=== PATIENT | male | born 1995 | race Caucasian/White ===

== ENCOUNTER 2022-03-30 13:21 | Inpatient (IN) ==
--- NOTE | 2022-03-30 14:09 | Emergency Department Note ---
Impression & Plan Seizure, Seizure-like activity, Leukocytosis, Low bicarbonate level ED Provider Note NAME: MASSIEL REVELES AGE: 26 SEX: M : 1995 ARRIVES VIA: Ambulance INFORMANT: Patient ED PROVIDER(S): Roni Parson DO CHIEF COMPLAINT: syncope x 2 HPI: Patient is a 26-year-old male who presents ER following having to episodes at home where he passed out. The first 1 was unwitnessed. The second was unwitnessed but his dad was in there and he heard the thud and came back and saw him with some intermittent agonal breathing. He was confused afterwards adn this lasted for a total of 10 minutes. There was no loss of bowel or bladder. He had no chest pain or shortness of breath preceding or following the incident. He does have a little bit of a headache. He believes his tetanus is up-to-date. Denies any chest pain or shortness of breath. No dysuria, urgency, or frequency. No drugs or alcohol. 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 ROS: See above HPI for pertinent positives & negatives. A total of 10 systems reviewed and were otherwise negative. PAST MEDICAL HISTORY:See Below PAST SURGICAL HISTORY:See Below FAMILY HISTORY:See Below SOCIAL HISTORY:See Below HOME MEDICATIONS:See Below ALLERGIES:See Below VITALS:See Below PHYSICAL EXAMINATION: GENERAL: alert, well appearing, well nourished, no distress, non-toxic HEAD: normal cephalic, abrasion above the left eyebrow with contusion. Laceration 2 inches above the top of the forehead with mild venous oozing 3 cm in length EYE EXAM: normal conjunctiva, PERRL and EOM's grossly intact OROPHARYNX: no exudate, no erythema, lips, buccal mucosa, and tongue normal and mucous membranes are moist NECK: supple, no nuchal rigidity, no adenopathy, non-tender CHEST: stable to compression anteriorly and posteriorly LUNGS: clear to auscultation. Normal chest wall mechanics HEART: no murmurs, S1 normal and S2 normal ABDOMEN: abdomen soft, non-tender, normo-active bowel sounds, no masses, no rebound or guarding. PELVIS: stable to compression anteriorly and posteriorly BACK: Back is symmetrical on inspection and there is no deformity, no midline tenderness, no CVA tenderness. UPPER EXTREMITIES: Flexion-extension of bilateral shoulders elbows wrist grasps without weakness or tenderness. No tenderness throughout bilateral arms on palpation with the exception of the left PIP and DIP on the third digit. DIP is held in flexion. Gross sensations intact. LOWER EXTREMITIES: full active and passive range of motion of all joints without tenderness to palpation NEURO EXAM: Normal sensorium, cranial nerves II-XII intact, normal speech, no weakness of arms, no weakness of legs. GCS: 15. MEDICAL DECISION MAKING: Patient is a 26-year-old male who presents ER with above-stated complaint. IV was established blood work was obtained. Labs show leukocytosis of 19,000. No significant anemia. BMP with a CO2 of 18. LFTs bilirubin were unremarkable. Troponin was negative. Lipase was unremarkable. Tox was negative. COVID was negative. D-dimer was slightly elevated. CT head was negative. CT face and cervical spine were unremarkable. Chest x-ray were unremarkable. Avulsion fracture at the base of the third distal phalanx as described on x-ray. Digit is unable to be extended at the DIP. Placed in splint. Discussed with Topher to have this followed up by orthopedics well as an inpatient. Patient had a witnessed seizure while in the ER which lasted for about 30 seconds. It was tonic-clonic. He had agonal breathing and was placed on a nonrebreather after the seizure and I performed a jaw thrust for several minutes. Was given 60 mg/kg of Keppra. He was updated at bedside as well as family once he returned to baseline. He was admitted for further work-up of his status epilepticus with 3 seizures today. Triage Nursing notes reviewed. Limited review of prior medical records performed Vital Signs: reviewed and remarkable for no significant abnormalities Differential diagnosis: Differential diagnosis includes etiologies such as vasovagal event, infection, hypoglycemia, electrolyte abnormalities, cardiac sources, intracerebral event, toxicologic, neurologic, as well as others were entertained. ER treatment provided: See below Diagnostics interpreted by me: ECG: Sinus rhythm rate 80 Normal axis No PVCs QTC 419 Cardiac Monitoring: An order was placed for continuous cardiac monitoring. The monitor shows a rate of 85 with sinus rhythm. Laboratory studies: As stated above and show below. Imaging studies: As described above Consultation(s): Discussed with Topher from [facility] Hospitalist service. Patient will need evaluation by orthopedics for his left distal third digit. He expressed understanding. Procedures: none Critical Care: I have personally spent 32 minutes of critical care time in the direct management of this patient. This includes bedside care, interpretation of diagnostic studies, and testing, discussion with consultants, patient, and family members, and other required patient management activities. This 32 minutes is in excess of all separately billable procedures. Past Med/Surg History Family History (Updated 03/30/22 @ 17:39 by LINDSEY Melvin) Other Family history non-contributory Social History Smoking Status: Never smoker Feels Safe at Home: Yes Allergies Allergies Allergy/AdvReac Type Severity Reaction Status Date / Time No Known Allergies Allergy Verified 03/30/22 16:13 Home Meds Home Medications Medication Instructions Recorded Confirmed Pre Workout Powd 1 dose PO DIRECTED PRN .Before 03/30/22 03/30/22 workouts biotin 1 mg capsule 0 mg PO DAILY 03/30/22 03/30/22 ibuprofen 200 mg tablet (Advil) 400 mg PO Q6H PRN Pain 03/30/22 03/30/22 Results & Data (ED) Vital Signs Vital Signs - 24 hr 03/30/22 13:30 03/30/22 15:37 03/30/22 15:37 Temperature 36.6 C Temperature Source Oral Pulse Rate 73 Pulse Rate [Apical] 86 Pulse Rhythm Regular Pulse Strength Normal Respiratory Rate 15 22 Respiratory Effort / Characteristics Non-Labored Respiratory Depth Normal Respiratory Pattern Regular Blood Pressure 126/52 L Blood Pressure [Right Arm] 104/83 Blood Pressure Mean 76 Blood Pressure Mean [Right Arm] 90 Blood Pressure Position Lying Blood Pressure Position [Right Arm] Lying Pulse Oximetry 98 100 98 Oxygen Delivery Method Room Air Room Air Sepsis Recent Fever Within 48 Hours No Sepsis New/Unexplained Change in Mental Status No Sepsis Action Taken by Nursing No Action Required 03/30/22 15:37 03/30/22 17:00 Temperature Temperature Source Pulse Rate 86 Pulse Rate [Apical] 84 Pulse Rhythm Pulse Strength Respiratory Rate 22 22 Respiratory Effort / Characteristics Respiratory Depth Respiratory Pattern Blood Pressure Blood Pressure [Right Arm] 108/52 L Blood Pressure Mean Blood Pressure Mean [Right Arm] 70 Blood Pressure Position Blood Pressure Position [Right Arm] Pulse Oximetry 98 97 Oxygen Delivery Method Room Air Sepsis Recent Fever Within 48 Hours Sepsis New/Unexplained Change in Mental Status Sepsis Action Taken by Nursing Laboratory Data Result diagrams: 03/30/22 14:40 03/30/22 14:40 Lab Results 03/30/22 03/30/22 03/30/22 Range/Units 14:40 14:40 14:40 WBC 19.36 H (4.8-10.8) K/ul RBC 5.64 (4.63-6.08) M/uL Hgb 15.6 (14.0-18.0) g/dl Hct 48.5 (40.1-51.0) % MCV 86.0 (80.0-100.0) fL MCH 27.7 (25.0-34.0) pg MCHC 32.2 (32.0-36.0) g/dL RDW Std Deviation 38.5 (36.4-46.3) fL RDW Coeff of Lorena 12.3 (11.5-14.5) % Plt Count 256 (130-400) K/uL MPV 11.3 (9.4-12.4) fL Immature Gran % (Auto) 0.6 % Neut % (Auto) 87.3 % Lymph % (Auto) 5.6 % [place] % (Auto) 6.1 % Eos % (Auto) 0.1 % Baso % (Auto) 0.3 % Neut # (Auto) 16.89 H (1.4-6.5) K/uL Lymph # (Auto) 1.09 L (1.2-3.4) K/uL [place] # (Auto) 1.19 H (0.24-0.82) K/uL Eos # (Auto) 0.02 (0-0.50) K/uL Baso # (Auto) 0.05 (0-0.2) K/uL Immature Gran # (Auto) 0.12 H (0.00-0.02) K/uL D-Dimer 900 H* (0-500) ug/L FEU Sodium 139 (136-145) mmol/L Potassium 4.1 (3.5-5.1) mmol/L Chloride 103 (98-107) mmol/L Carbon Dioxide 18 L (21-32) mmol/L Anion Gap 18 H (3-11) BUN 22 (6-23) mg/dl Creatinine 1.33 (0.6-1.4) mg/dl Est Cr Clr Drug Dosing 88.1 ml/min Est GFR ( Amer) 83.7 ml/min Est GFR (Non-Af Amer) 72.2 ml/min BUN/Creatinine Ratio 16.5 (10-20) Glucose 112 H (70-99(Fasting)) mg/dl Calcium 9.4 (8.5-10.1) mg/dl Total Bilirubin 0.5 (0.2-1.0) mg/dl AST 22 (13-39) U/L ALT 21 (7-52) U/L Alkaline Phosphatase 62 (34-104) U/L Troponin I High Sens 3.5 (0-20) pg/ml Total Protein 7.9 (6.0-8.3) gm/dl Albumin 5.0 (3.4-5.0) gm/dl Globulin 2.9 (2.5-4.0) gm/dl Albumin/Globulin Ratio 1.7 (0.9-2) Lipase 48 (11-82) U/L Urine Opiates Screen (Neg) Ur Methadone, Qual (Neg) Urine Barbiturates (Neg) Ur Phencyclidine (PCP) (Neg) U Amphetamin/Meth Scrn (Neg) MDMA (Ecstasy) Screen (Neg) U Benzodiazepines Scrn (Neg) Ur Cocaine Metabolite (Neg) U Marijuana (THC) Screen (Neg) SARS-CoV-2, RNA, NAAT (NEGATIVE) 03/30/22 03/30/22 Range/Units 15:40 15:40 WBC (4.8-10.8) K/ul RBC (4.63-6.08) M/uL Hgb (14.0-18.0) g/dl Hct (40.1-51.0) % MCV (80.0-100.0) fL MCH (25.0-34.0) pg MCHC (32.0-36.0) g/dL RDW Std Deviation (36.4-46.3) fL RDW Coeff of Lorena (11.5-14.5) % Plt Count (130-400) K/uL MPV (9.4-12.4) fL Immature Gran % (Auto) % Neut % (Auto) % Lymph % (Auto) % [place] % (Auto) % Eos % (Auto) % Baso % (Auto) % Neut # (Auto) (1.4-6.5) K/uL Lymph # (Auto) (1.2-3.4) K/uL [place] # (Auto) (0.24-0.82) K/uL Eos # (Auto) (0-0.50) K/uL Baso # (Auto) (0-0.2) K/uL Immature Gran # (Auto) (0.00-0.02) K/uL D-Dimer (0-500) ug/L FEU Sodium (136-145) mmol/L Potassium (3.5-5.1) mmol/L Chloride (98-107) mmol/L Carbon Dioxide (21-32) mmol/L Anion Gap (3-11) BUN (6-23) mg/dl Creatinine (0.6-1.4) mg/dl Est Cr Clr Drug Dosing ml/min Est GFR ( Amer) ml/min Est GFR (Non-Af Amer) ml/min BUN/Creatinine Ratio (10-20) Glucose (70-99(Fasting)) mg/dl Calcium (8.5-10.1) mg/dl Total Bilirubin (0.2-1.0) mg/dl AST (13-39) U/L ALT (7-52) U/L Alkaline Phosphatase (34-104) U/L Troponin I High Sens (0-20) pg/ml Total Protein (6.0-8.3) gm/dl Albumin (3.4-5.0) gm/dl Globulin (2.5-4.0) gm/dl Albumin/Globulin Ratio (0.9-2) Lipase (11-82) U/L Urine Opiates Screen Neg (Neg) Ur Methadone, Qual Neg (Neg) Urine Barbiturates Neg (Neg) Ur Phencyclidine (PCP) Neg (Neg) U Amphetamin/Meth Scrn Neg (Neg) MDMA (Ecstasy) Screen Neg (Neg) U Benzodiazepines Scrn Neg (Neg) Ur Cocaine Metabolite Neg (Neg) U Marijuana (THC) Screen Neg (Neg) SARS-CoV-2, RNA, NAAT NEGATIVE (NEGATIVE) Administered Medications Discontinued Medications Gadobutrol (Gadobutrol 65ml Vial) 8 ml IV ONCE ONE Stop: 03/30/22 19:11 Last Admin: 03/30/22 19:11 Dose: 8 ml Documented By: AF Levetiracetam 4,500 mg/ Sodium (Chloride) 545 mls @ 999 mls/hr IV NOW STA Stop: 03/30/22 15:30 Last Infusion: 03/30/22 16:43 Dose: 0 mls/hr Documented By: Admin: 03/30/22 15:14 Dose: 999 mls/hr Documented By: BRONSON Sodium Chloride (Nss 1000ml) 1,000 mls @ 999 mls/hr IV .Q1H1M ONE Stop: 03/30/22 17:30 Last Infusion: 03/30/22 19:02 Dose: 0 mls/hr Documented By: Admin: 03/30/22 17:10 Dose: 999 mls/hr Documented By: PAUL Imaging Data Radiologist's Impression: Cervical Spine CT 03/30/22 14:05 CT cervical spine wo con CLINICAL HISTORY: Status post fall with trauma to the head. Neck pain. COMPARISON STUDY: No previous studies for comparison. CT DOSE: 1764.85 mGy.cm TECHNIQUE: Standard CT of the Cervical Spine was performed without IV contrast. A dose lowering technique was utilized adhering to the principles of ALARA. FINDINGS: Bones: There is no evidence for an acute fracture or malalignment. The heights of the vertebral bodies are maintained. The vertebral bodies are in anatomic alignment. The odontoid is intact and the atlantoaxial articulation is within normal limits. Disc spaces: The disc space heights are maintained. There is patient motion artifact at the C2-3 disc space level. Apophyseal joints: The apophyseal joints are intact bilaterally. Soft tissues: The prevertebral soft tissues are within normal limits. IMPRESSION: 1. No acute osseous pathology. 2. Patient motion artifact at C2-3. ACT 112: Negative or not required by law. Electronically signed by: Carlos Reaves M.D. 03/30/2022 3:28 PM Chest X-Ray 03/30/22 14:05 XR chest 1V portable CLINICAL HISTORY: Chest Pain TECHNIQUE: Single frontal radiograph of the chest was obtained. Comparison: None available at the time of this dictation. FINDINGS: No lines and tubes are seen. The cardiomediastinal silhouette is normal. The lungs are clear. No evidence of pleural effusion or pneumothorax. IMPRESSION: No acute chest disease. ACT 112: Negative or not required by law. Electronically signed by: Bimal Dominguez M.D. 03/30/2022 2:[address] 03/30/22 14:05 CT SCAN OF THE FACIAL BONES WITHOUT IV CONTRAST CLINICAL HISTORY: Fall. Seizure. COMPARISON STUDY: CT of the brain performed concurrently on 03/30/2022. TECHNIQUE: High-resolution CT scan of the facial bones is performed. Images are reviewed in the axial, sagittal, and coronal planes. IV contrast was not administered for this examination. A dose lowering technique was utilized adhering to the principles of ALARA. The examination is degraded by motion artifact. FINDINGS: The skeletal structures are well mineralized. There is a small left frontal scalp hematoma as well as mild left facial soft tissue contusion. There is no evidence of facial bone fracture. The bony orbits are intact and the orbital contents are within normal limits. There is no depressed nasal bone fracture. The zygomatic arches and pterygoid plates are preserved. The maxilla and mandible are intact. There are no layering blood products within the paranasal sinuses. There is an 8 mm retention cyst in the right maxillary antrum. The paranasal sinuses are otherwise clear. The mastoid air cells are well pneumatized. The visualized calvarium and upper cervical spine are maintained. Partially imaged brain parenchyma is within normal limits. IMPRESSION: 1. There is no evidence of facial bone fracture noting a motion degraded examination. 2. Small left frontal scalp hematoma and left facial soft tissue contusion. ACT 112: Negative or not required by law. Electronically signed by: Saúl Tanner M.D. 03/30/2022 3:24 PM Finger X-Ray 03/30/22 14:05 XR finger(s) LT min 2V CLINICAL HISTORY: l 3rd held in flexion dip and pain PIP TECHNIQUE: 3 views of the left third digit were obtained. Comparison: None available at the time of this dictation. FINDINGS: There is no evidence of an acute fracture. There is an avulsion fracture of the base of the third digit distal phalanx. Soft tissue swelling is seen about the digit. IMPRESSION: Avulsion fracture at the base of the third digit distal phalanx. Surrounding soft tissue swelling is seen. ACT 112: Negative or not required by law. Electronically signed by: Bimal Dominguez M.D. 03/30/2022 2:[address] 03/30/22 14:05 CT SCAN OF THE BRAIN WITHOUT IV CONTRAST CLINICAL HISTORY: Fall. Seizure. COMPARISON STUDY: No priors. TECHNIQUE: Unenhanced axial CT scan of the brain is performed from the vertex to the skull base. A dose lowering technique was utilized adhering to the principles of ALARA. The Examination is motion compromised. The patient was scanned twice due an effort to improve image quality. FINDINGS: Brain parenchyma: The brain parenchyma is normal in appearance. There is no hemorrhage, mass effect, or evidence of acute territorial ischemia by CT criteria. Gonsalez-white matter differentiation is preserved. No extra-axial fluid collection is seen. Ventricles, sulci, cisterns: Normal in configuration. Intracranial vasculature: The visualized intracranial vasculature at the skull base is normal in appearance. Calvarium: There is no depressed calvarial fracture. Soft tissues: There is a small left frontal scalp hematoma. Sinuses and mastoids: The visualized paranasal sinuses are clear. The mastoid air cells are well pneumatized. Orbits: The bony orbits are grossly intact. IMPRESSION: No acute intracranial abnormality is identified noting a motion compromised examination. ACT 112: Negative or not required by law. Electronically signed by: Saúl Tanner M.D. 03/30/2022 3:19 PM Brain MRI 03/30/22 16:55 MR brain seizure wo/w con CLINICAL HISTORY: new onset seizures TECHNIQUE: Multiplanar and multisequence MR images of the brain were obtained prior to and following administration of gadolinium contrast. Comparison: None available at the time of this dictation. FINDINGS: No abnormal restricted diffusion is identified. The white matter is unremarkable. The ventricular system is normal in appearance. No mass or abnormal enhancement is seen. There is no mass effect or midline shift. There is no evidence of acute intraparenchymal hemorrhage. No extra axial fluid collections are seen. The corpus callosum, pituitary gland, and cerebellar tonsils appear grossly unremarkable. High-resolution images of the temporal lobes do not demonstrate any signal abnormality. Flow voids of the major intracranial arterial vessels are identified. The imaged portions of the paranasal sinuses, mastoid air cells, and orbits are unremarkable. IMPRESSION: No acute abnormality. In particular, no edema in the temporal lobes bilaterally in this postictal patient. ACT 112: Negative or not required by law. Electronically signed by: Bimal Dominguez M.D. 03/30/2022 7:33 PM Discharge Plan Visit Data Chief Complaint: Syncope Stated Complaint: syncope ED Provider: Roni Parson Discharge Problem: Seizure, Seizure-like activity, Leukocytosis, Low bicarbonate level
--- NOTE | 2022-03-30 14:34 | XRay Report ---
XR chest 1V portable CLINICAL HISTORY: Chest Pain TECHNIQUE: Single frontal radiograph of the chest was obtained. Comparison: None available at the time of this dictation. FINDINGS: No lines and tubes are seen. The cardiomediastinal silhouette is normal. The lungs are clear. No evid ence of pleural effusion or pneumothorax. IMPRESSION: No acute chest disease. ACT 112: Negative or not required by law. Electronically signed by: Bimal Dominguez M.D. 03/30/2022 2:33 PM
--- NOTE | 2022-03-30 14:44 | XRay Report ---
XR finger(s) LT min 2V CLINICAL HISTORY: l 3rd held in flexion dip and pain PIP TECHNIQUE: 3 views of the left third digit were obtained. Comparison: None available at the time of this dictation. FINDINGS: There is no evidence of an acute fracture. There is an avulsion fracture of the base of the third dig it distal phalanx. Soft tissue swelling is seen about the digit. IMPRESSION: Avulsion fracture at the base of the third digit distal phalanx. Surrounding soft tissue swelling is seen. ACT 112: Negative or not required by law. Electronically signed by: Bimal Dominguez M.D. 03/30/2022 2:43 PM
[2022-03-30] MEDS ORDERED: SODIUM CHLORIDE 0.9% IV STA (14:58)
[2022-03-30] MEDS ORDERED: LEVETIRACETAM IV STA (14:58)
--- NOTE | 2022-03-30 15:21 | CT Scan Report ---
CT SCAN OF THE BRAIN WITHOUT IV CONTRAST CLINICAL HISTORY: Fall. Seizure. COMPARISON STUDY: No priors. TECHNIQUE: Unenhanced axial CT scan of the brain is performed from the vertex to the skull base. A d ose lowering technique was utilized adhering to the principles of ALARA. The Examination is motion co mpromised. The patient was scanned twice due an effort to improve image quality. FINDINGS: Brain parenchyma: The brain parenchyma is normal in appearance. There is no hemorrhage, mass effect, or evidence of acute territorial ischemia by CT criteria. Gonsalez-white matter differentiation is preser raymond. No extra-axial fluid collection is seen. Ventricles, sulci, cisterns: Normal in configuration. Intracranial vasculature: The visualized intracranial vasculature at the skull base is normal in appe arance. Calvarium: There is no depressed calvarial fracture. Soft tissues: There is a small left frontal scalp hematoma. Sinuses and mastoids: The visualized paranasal sinuses are clear. The mastoid air cells are well pneu matized. Orbits: The bony orbits are grossly intact. IMPRESSION: No acute intracranial abnormality is identified noting a motion compromised examination. ACT 112: Negative or not required by law. Electronically signed by: Saúl Tanner M.D. 03/30/2022 3:19 PM
--- NOTE | 2022-03-30 15:21 | Electrocardiogram Report ---
Test Reason : Blood Pressure : / mmHG Vent. Rate : 080 BPM Atrial Rate : 080 BPM P-R Int : 162 ms QRS Dur : 100 ms QT Int : 364 ms P-R-T Axes : 049 051 029 degrees QTc Int : 419 ms Normal sinus rhythm No previous ECGs available Confirmed by Fredrick Grubbs ([id number]) on 03/30/2022 3:21:33 PM Referred By: REFERRED SELF Confirmed By:Harman Grubbs
--- NOTE | 2022-03-30 15:26 | CT Scan Report ---
CT SCAN OF THE FACIAL BONES WITHOUT IV CONTRAST CLINICAL HISTORY: Fall. Seizure. COMPARISON STUDY: CT of the brain performed concurrently on 03/30/2022. TECHNIQUE: High-resolution CT scan of the facial bones is performed. Images are reviewed in the axia l, sagittal, and coronal planes. IV contrast was not administered for this examination. A dose lower ing technique was utilized adhering to the principles of ALARA. The examination is degraded by motion artifact. FINDINGS: The skeletal structures are well mineralized. There is a small left frontal scalp hematoma as well as mild left facial soft tissue contusion. There is no evidence of facial bone fracture. The bony orbits are intact and the orbital contents are within normal limits. There is no depressed nasal bone fracture. The zygomatic arches and pterygoid plates are preserved. The maxilla and mandible are intact. There are no layering blood products within the paranasal sinuses. There is an 8 mm retentio n cyst in the right maxillary antrum. The paranasal sinuses are otherwise clear. The mastoid air cell s are well pneumatized. The visualized calvarium and upper cervical spine are maintained. Partially i isra brain parenchyma is within normal limits. IMPRESSION: 1. There is no evidence of facial bone fracture noting a motion degraded examination. 2. Small left frontal scalp hematoma and left facial soft tissue contusion. ACT 112: Negative or not required by law. Electronically signed by: Saúl Tanner M.D. 03/30/2022 3:24 PM
[2022-03-30 15:27] LABS: Basophils # (auto) 0.05 K/uL (0-0.2); Basophils % (auto) 0.3 %; Eosinophils # (auto) 0.02 K/uL (0-0.50); Eosinophils % (auto) 0.1 %; Hematocrit (blood only) 48.5 % (40.1-51.0); Hemoglobin 15.6 g/dl (14.0-18.0); Immature Granulocytes # (auto) 0.12 K/uL (0.00-0.02); Immature Granulocytes % (auto) 0.6 %; Lymphocytes # (auto) 1.09 K/uL (1.2-3.4); Lymphocytes % (auto) 5.6 %; Mean Corpuscular Hemoglobin 27.7 pg (25.0-34.0); Mean Corpuscular Hgb Conc 32.2 g/dL (32.0-36.0); Mean Platelet Volume 11.3 fL (9.4-12.4); Monocytes # (auto) 1.19 K/uL (0.24-0.82); Monocytes % (auto) 6.1 %; Neutrophils # (auto) 16.89 K/uL (1.4-6.5); Neutrophils % (auto) 87.3 %; Platelet Count 256 K/uL (130-400); RDW Coefficient of Variation 12.3 % (11.5-14.5); RDW Standard Deviation 38.5 fL (36.4-46.3); Red Blood Count 5.64 M/uL (4.63-6.08); White Blood Count 19.36 K/ul (4.8-10.8)
--- NOTE | 2022-03-30 15:29 | CT Scan Report ---
CT cervical spine wo con CLINICAL HISTORY: Status post fall with trauma to the head. Neck pain. COMPARISON STUDY: No previous studies for comparison. CT DOSE: 1764.85 mGy.cm TECHNIQUE: Standard CT of the Cervical Spine was performed without IV contrast. A dose lowering surekha hnique was utilized adhering to the principles of ALARA. FINDINGS: Bones: There is no evidence for an acute fracture or malalignment. The heights of the vertebral lizet s are maintained. The vertebral bodies are in anatomic alignment. The odontoid is intact and the atla ntoaxial articulation is within normal limits. Disc spaces: The disc space heights are maintained. There is patient motion artifact at the C2-3 disc space level. Apophyseal joints: The apophyseal joints are intact bilaterally. Soft tissues: The prevertebral soft tissues are within normal limits. IMPRESSION: 1. No acute osseous pathology. 2. Patient motion artifact at C2-3. ACT 112: Negative or not required by law. Electronically signed by: Carlos Reaves M.D. 03/30/2022 3:28 PM
[2022-03-30 15:50] LABS: Albumin Globulin Ratio 1.7 (0.9-2); BUN Creatinine Ratio 16.5 (10-20); Bilirubin,Total 0.5 mg/dl (0.2-1.0); Calcium 9.4 mg/dl (8.5-10.1); Creatinine Clr Calc Pharmacy 88.1 ml/min; D Dimer 900 ug/L FEU (0-500); Est GFR (African American) 83.7 ml/min; Est GFR (Non-African American) 72.2 ml/min; Globulin 2.9 gm/dl (2.5-4.0); Potassium 4.1 mmol/L (3.5-5.1); Total Protein 7.9 gm/dl (6.0-8.3)
[2022-03-30 15:54] LABS: Troponin I High Sensitivity 3.5 pg/ml (0-20)
[2022-03-30] MEDS ORDERED: SODIUM CHLORIDE 0.9% 1000ML 1,000 ML IV ONE (16:30)
--- NOTE | 2022-03-30 17:18 | History & Physical Report ---
Date of Service March 30, 2022 Assessment & Plan (1) Seizure-like activity: Plan: Patient presents with what originally sounded like syncopal episodes precluded by dizziness and light headedness, however witnessed event in the EMD was reported as seizure like activity with reported tonic/clonic of the arms possibly < than 1min. This would be new onset of seizure for this 26 YOM with and if all episodes were as the one in the EMD this would be 3 episodes. He is back to full baseline neurological status. Associated with minimal confusion afterwards and short lived. - DDX- Seizure vs. Cardiac vs. endocrine vs. toxic vs. mass vs. infectious - Patient loaded with 4.5 GM Keppra IV by EMD- will continue this at 750 mg orally BID - MRI of the head with and without contrast seizure protocol. 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 This will need addressed. (2) Avulsion fracture: Plan: Left 3rd finger avulsion fracture- splint ordered to be applied by EMD - Patient unable to extend, but manually able to extend the finger without pain or resistance - Orthopaedics consulted (3) Head contusion: Plan: Left frontal laceration closed primarily by EMD - with surrounding ecchymosis - neuro exams q4 hour - any acute change - repeat head CT non contrast evaluate for DASH (4) Leukocytosis: Plan: Without fever, cough, CXR clear - Likely reactionary to all of the events today History of Present Illness Primary Care Provider: NO PCP 26 YOM with no medical history and not on any prescription medications. Patient comes to the EMD today via EMS for syncope/seizure like activity. The patient was at home this morning down in his basement when he was removing sticker from his water bottle with goo gone. He started to feel dizzy and lightheaded, so he tried to make his way over to the finished section. While on his way over he remembers getting more dizzy. He then awoke on the floor and he endorsed confused. He had a laceration to the front of his head. He was able to take a picture of himself and text his mom, this was around 11:30. His mom talked to him on the phone and he sounded "off". He did not have an loss of bowel or bladder with this episode. His dad went over to see him. The patient then went into the bedroom to get dressed and his dad heard him say "Oh Shit" and heard him fall to the ground, his dad thinks he may have hit his head on the top on the dresser behind him. His dad called 911 ~ 1220 and rolled his son on his side. He endorses him making a barking/puffing sound with his breathing. The patient awakened but can not remember anything, this episode lasted ~ 10-15 minutes. The patient remembers waking up and seeing EMS around him. He was then transported to the EMD. In the EMD the patient had a witnessed event by EMD staff. This was him tightening his arms up to about 3/4 to his chest and again with barking/puffing breathing and reported as tonic clonic movement of his arms. This was resolving as the EMD physician got to bedside so presume 1 min or less. This was also not associated with any loss of bowel or bladder and also with out any biting of his tongue. He awakened and was not confused or postictal. He is spontaneously awake at this time and normally functioning. This was treated with Keppra 4.5 GM IV and unsure of time frame. In the EMD he had CT scan of his head, CXR, finger X-ray, Face CT and Cervical spine CT scan done. The patient does have an avulsion fracture of the base of the third digit distal phalanx and is unable to extend 3rd digit by self. It is being splinted, will consult orthopaedics. His head CT and Cervical CT scan are normal. His face CT scan is without fractures. Patient will be admitted to PCU, continue seizure precautions at all times. The patient has recently started taking a pre-workout powder that he has brought with him. He previously took this about a year ago, however stopped. He recently started this back within the last few days. He takes creatine supplementation about 1/2 scoop. He is physically active and has not had any events like this while working out or stressed. He averages 1-2 cups of coffee per day. Uses energy drinks 1 time per month if that. He denies excessive alcohol intake or smoking/vaping. He does however have a history of "passing" out when he sees blood on him, or blood draws, or things like capes around his neck. He denies any other drug use or supplementation. He denies any change in his diet or fasting. His glucose was normal on arrival and rest of his BMP is negative. Jose, consult Neurology, obtain EEG, MRI of brain with and without contrast. Valium will be available for breakthrough seizure. Toxicology screen, prolactin, lactate, CK, pending. He is without fevers, alteration in mentation and without focal neurological deficits. 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 This will need addressed. COVID test on admission is: NEGATIVE Allergies Allergy/AdvReac Type Severity Reaction Status Date / Time No Known Allergies Allergy Verified 03/30/22 16:13 Home Medications Medication Instructions Recorded Confirmed Type Pre Workout Powd 1 dose PO DIRECTED PRN .Before 03/30/22 03/30/22 History workouts biotin 1 mg capsule 0 mg PO DAILY 03/30/22 03/30/22 History ibuprofen 200 mg tablet (Advil) 400 mg PO Q6H PRN Pain 03/30/22 03/30/22 History Past Med/Surg History Family History Other Family history non-contributory Social History Smoking Status: Never smoker Hx Alcohol Use: Yes Hx Substance Use: No Preferred Language: Swedish Communication Ability: Effective Tire Setter Required: No Beliefs That Will Affect Care: None Feels Safe at Home: Yes Review of Systems Review of Systems: REVIEW OF SYSTEMS: Constitutional: No fever, sweats or chills Eyes: No diplopia, no worsening or blurred vision ENT: normal hearing, no trouble swallowing Respiratory: No cough, sputum, dyspnea at rest or on exertion Cardiovascular: (+) dizziness, lightheadedness, No chest pain, tightness or palpitations Abdomen: No pain, nausea, vomiting, diarrhea or constipation Musculoskeletal: No joint pain, calf pain, swelling Neurologic: (+) seizure like activity, No weakness, numbness/tingling, or balance problems Psychiatric: No anxiety or depression Skin: No rash or itch Physical Exam Physical Exam: PHYSICAL EXAM: General: awake, alert, no apparent distress Head: Laceration to left forehead/scalp- repaired in EMD ENT: PERRLA, EOMI, no nystagmus, no pharyngeal exudate, mucous membranes moist Neuro: AAO x 3, speech clear and appropriate, strength intact bilaterally 5/5, sensation intact and equal all extremities and dermatomes, no pronator drift, no ataxia, normal babinski Chest: equal rise and fall of the chest, no accessory muscle use, no heaves or thrills, Clear to auscultation, on room air, Cardiac: Regular rate and rhythm, telemetry reviewed, skin warm dry, cap refill <3 seconds, peripheral pulses +2 no JVD, no murmur, no edema GI: NABS x 4 quadrants, soft, nontender to palpation, no rebound, guarding or tenderness : Spontaneously voiding, no pain, no CVA tenderness, Extremities: LEFT 3rd finger avulsion fracture with inability to extend. Normal inspection, no peripheral edema or erythema, calfs nontender to palpation Psych: Normal mood and affect Results & Data Results & Data ([facility]) Vital Signs (Past 12 Hours) Vital Signs Temp Pulse Pulse Resp BP BP Pulse Ox 03/30/22 15:37 86 22 98 03/30/22 15:37 86 22 104/83 98 03/30/22 15:37 100 03/30/22 13:30 36.6 C 73 15 126/52 L 98 O2 Del Method 03/30/22 15:37 Room Air 03/30/22 15:37 03/30/22 15:37 Room Air 03/30/22 13:30 Room Air Laboratory Results Abnormal lab results 03/30/22 03/30/22 03/30/22 Range/Units 14:40 14:40 14:40 WBC 19.36 H (4.8-10.8) K/ul Neut # (Auto) 16.89 H (1.4-6.5) K/uL Lymph # (Auto) 1.09 L (1.2-3.4) K/uL [place] # (Auto) 1.19 H (0.24-0.82) K/uL Immature Gran # (Auto) 0.12 H (0.00-0.02) K/uL D-Dimer 900 H* (0-500) ug/L FEU Carbon Dioxide 18 L (21-32) mmol/L Anion Gap 18 H (3-11) Glucose 112 H (70-99(Fasting)) mg/dl Diagnostic Findings Cervical Spine CT 03/30/22 14:05 CT cervical spine wo con CLINICAL HISTORY: Status post fall with trauma to the head. Neck pain. COMPARISON STUDY: No previous studies for comparison. CT DOSE: 1764.85 mGy.cm TECHNIQUE: Standard CT of the Cervical Spine was performed without IV contrast. A dose lowering technique was utilized adhering to the principles of ALARA. FINDINGS: Bones: There is no evidence for an acute fracture or malalignment. The heights of the vertebral bodies are maintained. The vertebral bodies are in anatomic alignment. The odontoid is intact and the atlantoaxial articulation is within normal limits. Disc spaces: The disc space heights are maintained. There is patient motion artifact at the C2-3 disc space level. Apophyseal joints: The apophyseal joints are intact bilaterally. Soft tissues: The prevertebral soft tissues are within normal limits. IMPRESSION: 1. No acute osseous pathology. 2. Patient motion artifact at C2-3. ACT 112: Negative or not required by law. Electronically signed by: Carlos Reaves M.D. 03/30/2022 3:28 PM Chest X-Ray 03/30/22 14:05 XR chest 1V portable CLINICAL HISTORY: Chest Pain TECHNIQUE: Single frontal radiograph of the chest was obtained. Comparison: None available at the time of this dictation. FINDINGS: No lines and tubes are seen. The cardiomediastinal silhouette is normal. The lungs are clear. No evidence of pleural effusion or pneumothorax. IMPRESSION: No acute chest disease. ACT 112: Negative or not required by law. Electronically signed by: Bimal Dominguez M.D. 03/30/2022 2:[address] 03/30/22 14:05 CT SCAN OF THE FACIAL BONES WITHOUT IV CONTRAST CLINICAL HISTORY: Fall. Seizure. COMPARISON STUDY: CT of the brain performed concurrently on 03/30/2022. TECHNIQUE: High-resolution CT scan of the facial bones is performed. Images are reviewed in the axial, sagittal, and coronal planes. IV contrast was not administered for this examination. A dose lowering technique was utilized adhering to the principles of ALARA. The examination is degraded by motion artifact. FINDINGS: The skeletal structures are well mineralized. There is a small left frontal scalp hematoma as well as mild left facial soft tissue contusion. There is no evidence of facial bone fracture. The bony orbits are intact and the orbital contents are within normal limits. There is no depressed nasal bone fracture. The zygomatic arches and pterygoid plates are preserved. The maxilla and mandible are intact. There are no layering blood products within the paranasal sinuses. There is an 8 mm retention cyst in the right maxillary antrum. The paranasal sinuses are otherwise clear. The mastoid air cells are well pneumatized. The visualized calvarium and upper cervical spine are maintained. Partially imaged brain parenchyma is within normal limits. IMPRESSION: 1. There is no evidence of facial bone fracture noting a motion degraded examination. 2. Small left frontal scalp hematoma and left facial soft tissue contusion. ACT 112: Negative or not required by law. Electronically signed by: Saúl Tanner M.D. 03/30/2022 3:24 PM Finger X-Ray 03/30/22 14:05 XR finger(s) LT min 2V CLINICAL HISTORY: l 3rd held in flexion dip and pain PIP TECHNIQUE: 3 views of the left third digit were obtained. Comparison: None available at the time of this dictation. FINDINGS: There is no evidence of an acute fracture. There is an avulsion fracture of the base of the third digit distal phalanx. Soft tissue swelling is seen about the digit. IMPRESSION: Avulsion fracture at the base of the third digit distal phalanx. Surrounding soft tissue swelling is seen. ACT 112: Negative or not required by law. Electronically signed by: Bimal Dominguez M.D. 03/30/2022 2:[address] 03/30/22 14:05 CT SCAN OF THE BRAIN WITHOUT IV CONTRAST CLINICAL HISTORY: Fall. Seizure. COMPARISON STUDY: No priors. TECHNIQUE: Unenhanced axial CT scan of the brain is performed from the vertex to the skull base. A dose lowering technique was utilized adhering to the principles of ALARA. The Examination is motion compromised. The patient was scanned twice due an effort to improve image quality. FINDINGS: Brain parenchyma: The brain parenchyma is normal in appearance. There is no hemorrhage, mass effect, or evidence of acute territorial ischemia by CT criteria. Gonsalez-white matter differentiation is preserved. No extra-axial fluid collection is seen. Ventricles, sulci, cisterns: Normal in configuration. Intracranial vasculature: The visualized intracranial vasculature at the skull base is normal in appearance. Calvarium: There is no depressed calvarial fracture. Soft tissues: There is a small left frontal scalp hematoma. Sinuses and mastoids: The visualized paranasal sinuses are clear. The mastoid air cells are well pneumatized. Orbits: The bony orbits are grossly intact. IMPRESSION: No acute intracranial abnormality is identified noting a motion c ompromised examination. ACT 112: Negative or not required by law. Electronically signed by: Saúl Tanner M.D. 03/30/2022 3:19 PM MR brain seizure wo/w con CLINICAL HISTORY: new onset seizures TECHNIQUE: Multiplanar and multisequence MR images of the brain were obtained prior to and following administration of gadolinium contrast. Comparison: None available at the time of this dictation. FINDINGS: No abnormal restricted diffusion is identified. The white matter is unremarkable. The ventricular system is normal in appearance. No mass or abnormal enhancement is seen. There is no mass effect or midline shift. There is no evidence of acute intraparenchymal hemorrhage. No extra axial fluid collections are seen. The corpus callosum, pituitary gland, and cerebellar tonsils appear grossly unremarkable. High-resolution images of the temporal lobes do not demonstrate any signal abnormality. Flow voids of the major intracranial arterial vessels are identified. The imaged portions of the paranasal sinuses, mastoid air cells, and orbits are unremarkable. IMPRESSION: No acute abnormality. In particular, no edema in the temporal lobes bilaterally in this postictal patient. ACT 112: Negative or not required by law. Electronically signed by: Bimal Dominguez M.D. 03/30/2022 7:33 PM Medications Administered Home Medications Pre Workout Powd 1 dose PO DIRECTED PRN .Before workouts 03/30/22 [History Confirmed 03/30/22] biotin 1 mg capsule 0 mg PO DAILY 03/30/22 [History Confirmed 03/30/22] ibuprofen 200 mg tablet (Advil) 400 mg PO Q6H PRN Pain 03/30/22 [History Confirmed 03/30/22] ECG Additional Comments: Vent. Rate : 080 BPM Atrial Rate : 080 BPM P-R Int : 162 ms QRS Dur : 100 ms QT Int : 364 ms P-R-T Axes : 049 051 029 degrees QTc Int : 419 ms Normal sinus rhythm Code Status & VTE Plan Code Status CODE: FULL VTE: SCDs VTE Prophylaxis Plan VTE Prophylaxis will be ordered: Yes Supervising Physician Co-Signing Physician Notes I personally saw and examined the patient. I verified all álvarez points and agree with LINDSEY Palomo with the following exceptions and/or additions: 26 year old male presents with seizure like activity following a fall. O/E A/P Seizure-like activity - Keppra 4500mg IV given in ER PG Care Time/CCT Total # of Minutes Spent Total Time Spent with Patient: Total time spent is greater than 50% in coordination of care (as documented) at patient's floor/unit and/or counseling patient: Coding Level of Care Code 83964 Initial Inpt Care Lvl 3 Diagnoses Seizure-like activity R56.9 Avulsion fracture T14.8XXA Head contusion S00.93XA Leukocytosis D72.829
[2022-03-30 17:38] LABS: Amphetamines+Metham, Urine Neg (Neg); Barbiturates, Urine Neg (Neg); Benzodiazepine, Urine Neg (Neg); Cocaine, Urine Neg (Neg); MDMA (Ecstacy), Urine Neg (Neg); Methadone, Urine Neg (Neg); Opiate, Urine Neg (Neg); Phencyclidine, Urine Neg (Neg)
[2022-03-30] MEDS ORDERED: GADOBUTROL 65ML VIAL IV ONE (19:10)
[2022-03-30] MEDS ORDERED: ACETAMINOPHEN 325 MG TAB PO PRN (19:32)
--- NOTE | 2022-03-30 19:35 | Magnetic Resonance Report ---
MR brain seizure wo/w con CLINICAL HISTORY: new onset seizures TECHNIQUE: Multiplanar and multisequence MR images of the brain were obtained prior to and following administration of gadolinium contrast. Comparison: None available at the time of this dictation. FINDINGS: No abnormal restricted diffusion is identified. The white matter is unremarkable. The ventricular sys tem is normal in appearance. No mass or abnormal enhancement is seen. There is no mass effect or midl ine shift. There is no evidence of acute intraparenchymal hemorrhage. No extra axial fluid collection s are seen. The corpus callosum, pituitary gland, and cerebellar tonsils appear grossly unremarkable. High-resolution images of the temporal lobes do not demonstrate any signal abnormality. Flow voids of the major intracranial arterial vessels are identified. The imaged portions of the para nasal sinuses, mastoid air cells, and orbits are unremarkable. IMPRESSION: No acute abnormality. In particular, no edema in the temporal lobes bilaterally in this postictal pat ient. ACT 112: Negative or not required by law. Electronically signed by: Bimal Dominguez M.D. 03/30/2022 7:33 PM
[2022-03-30 20:34] LABS: Lyme Ab IgG w/WB Rflx Negative (Negative); Lyme Ab IgM w/WB Rflx Negative (Negative)
--- NOTE | 2022-03-30 20:49 | Orthopedic Consultation ---
Date of Service March 30, 2022 Assessment & Plan (1) Mallet finger of left hand: He has a mallet finger of his left long finger. This can be treated conservatively. He is currently in a volar splint. He should follow-up in our office this week. He will likely be in a stack splint for at least 6 weeks. He understands this. He is orthopedically stable for discharge when medically ready. Full orthopedic discharge instructions were placed in the discharge summary. Follow-up with orthopedics within a week. History of Present Illness Reason for Consultation: Mallet finger left long finger. Requesting Physician: . Attending Physician: Miky Arthur MD Jaswant is a pleasant 26-year-old male who had a seizure today. He fell on some concrete. He had injury to his head. He also injured his left long finger. X- rays demonstrated a mallet finger. I did not appreciate any fracture. He was placed in a splint in the emergency room. Orthopedics was consulted to evaluate and treat.. Allergies Allergy/AdvReac Type Severity Reaction Status Date / Time No Known Allergies Allergy Verified 03/30/22 16:13 Home Medications Medication Instructions Recorded Confirmed Type Pre Workout Powd 1 dose PO DIRECTED PRN .Before 03/30/22 03/30/22 History workouts biotin 1 mg capsule 0 mg PO DAILY 03/30/22 03/30/22 History ibuprofen 200 mg tablet (Advil) 400 mg PO Q6H PRN Pain 03/30/22 03/30/22 History Past Med/Surg History Family History Other Family history non-contributory Social History Smoking Status: Never smoker Hx Alcohol Use: Yes Hx Substance Use: No Preferred Language: Tamazight Communication Ability: Effective Bezel Cutter Required: No Beliefs That Will Affect Care: None Feels Safe at Home: Yes Safety Concerns: Feels Safe At This Time Review of Systems All systems reviewed & are unremarkable except as noted in HPI & below. Physical Exam On physical examination of the left hand, I left a splint in place. It is a well fitting splint. He had sensation at the tip of his finger. The rest of his hand looked okay.. Constitutional WD/WN, vitals as above Eyes PERRL, conjunctivae normal, anicteric sclerae ENMT external ear and nose normal, oropharynx normal Neck trachea midline, no thyromegaly Respiratory normal respiratory effort, lungs clear to auscultation Cardiovascular RRR, no murmur, no edema Gastrointestinal (Abdomen) normal bowel sounds, soft, nontender, no hepatosplenomegaly Skin no rashes, warm and dry Psychiatric A+Ox3, euthymic affect Results & Data Results & Data Laboratory Results . Diagnostic Findings X-rays obtained in the emergency room show signs of mallet finger of the distal phalanx of the left long finger. There is a questionable avulsion fracture of the base of the distal phalanx.. PG Care Time/CCT Total # of Minutes Spent Total Time Spent with Patient: Total time spent is greater than 50% in coordination of care (as documented) at patient's floor/unit and/or counseling patient: Coding Level of Care Code 96047 Inpt Consult Level 4 Diagnoses Mallet finger of left hand M20.012
[2022-03-30] MEDS: levETIRAcetam 250 MG TAB PO SCH (21:35)
[2022-03-31 07:40] LABS: Basophils # (auto) 0.04 K/uL (0-0.2); Basophils % (auto) 0.4 %; Eosinophils # (auto) 0.04 K/uL (0-0.50); Eosinophils % (auto) 0.4 %; Hematocrit (blood only) 43.2 % (40.1-51.0); Hemoglobin 13.9 g/dl (14.0-18.0); Immature Granulocytes # (auto) 0.05 K/uL (0.00-0.02); Immature Granulocytes % (auto) 0.5 %; Lymphocytes # (auto) 1.36 K/uL (1.2-3.4); Lymphocytes % (auto) 12.3 %; Mean Corpuscular Hemoglobin 27.8 pg (25.0-34.0); Mean Corpuscular Hgb Conc 32.2 g/dL (32.0-36.0); Mean Corpuscular Volume 86.4 fL (80.0-100.0); Mean Platelet Volume 10.7 fL (9.4-12.4); Neutrophils # (auto) 8.44 K/uL (1.4-6.5); Neutrophils % (auto) 76.4 %; Platelet Count 180 K/uL (130-400); RDW Coefficient of Variation 12.5 % (11.5-14.5); White Blood Count 11.03 K/ul (4.8-10.8)
[2022-03-31 07:56] LABS: BUN Creatinine Ratio 12.9 (10-20); Calcium 8.7 mg/dl (8.5-10.1); Est GFR (African American) 98.8 ml/min; Est GFR (Non-African American) 85.2 ml/min; Magnesium 2.1 mg/dl (1.7-2.4)
--- NOTE | 2022-03-31 07:59 | Electroencephalogram ---
EEG Procedure Note Date of Service March 31, 2022 Start / End Times Start Time: 5:16 AM End Time: 5:36 AM Referring Physician Delvis Gutierrez History Seizure-like episode Home Medication List Medication Instructions Recorded Confirmed Type Pre Workout Powd 1 dose PO DIRECTED PRN .Before 03/30/22 03/30/22 History workouts biotin 1 mg capsule 0 mg PO DAILY 03/30/22 03/30/22 History ibuprofen 200 mg tablet (Advil) 400 mg PO Q6H PRN Pain 03/30/22 03/30/22 History Inpatient Medication List Acetaminophen (Acetaminophen 325 Mg Tab) 650 mg PO Q4H PRN PRN Reason: Pain or Fever Stop: 04/29/22 19:31 Last Admin: 03/30/22 21:05 Dose: 650 mg Documented By: JOSE JUAN Levetiracetam (Levetiracetam 250 Mg Tab) 750 mg PO BID MARGO Stop: 04/29/22 20:59 Last Admin: 03/30/22 21:35 Dose: 750 mg Documented By: JOSE JUAN Discontinued Medications Gadobutrol (Gadobutrol 65ml Vial) 8 ml IV ONCE ONE Stop: 03/30/22 19:11 Last Admin: 03/30/22 19:11 Dose: 8 ml Documented By: SIENA Levetiracetam 4,500 mg/ Sodium (Chloride) 545 mls @ 999 mls/hr IV NOW STA Stop: 03/30/22 15:30 Last Infusion: 03/30/22 16:43 Dose: 0 mls/hr Documented By: Admin: 03/30/22 15:14 Dose: 999 mls/hr Documented By: BRONSON Sodium Chloride (Nss 1000ml) 1,000 mls @ 999 mls/hr IV .Q1H1M ONE Stop: 03/30/22 17:30 Last Infusion: 03/30/22 19:02 Dose: 0 mls/hr Documented By: Admin: 03/30/22 17:10 Dose: 999 mls/hr Documented By: PAUL Description This is a 21 electrode EEG with a single channel dedicated to limited EKG. The electrodes were placed in accordance with the International 10-20 system. There is a posterior dominant rhythm of 9 Hz which is symmetrically distributed and attenuates with eye opening. There is a normal anterior to posterior organization. Photic stimulation is unremarkable. Hyperventilation is not performed. There is a symmetric frontal beta rhythm. There is no focal slowing. There are no epileptiform abnormalities. There are no changes suggestive of sleep. Interpretation Normal-appearing awake/drowsy EEG. A normal EEG does not completely exclude a diagnosis of epilepsy. Further clinical correlation may be needed. [facility] EEG Procedure Codes Indication for Procedure (1) Seizure-like activity: Neurology Neurology: 34798 EEG include record awake & drowsy
[2022-03-31] MEDS: levETIRAcetam 250 MG TAB PO SCH (08:32)
--- NOTE | 2022-03-31 09:11 | Neurology Consultation ---
Date of Consultation March 31, 2022 Assessment & Plan (1) Vasovagal syncope: (2) Seizure: Plan 26-year-old male with a history of vasovagal episodes, presenting with 2 syncopal episodes at home followed by a witnessed convulsive episode in the emergency department. Because these episodes occur within 24 hours, they would technically not be considered separate seizure episodes and would not be considered epilepsy or seizure disorder, especially in the context of his normal EEG and normal gadolinium-enhanced brain MRI with seizure protocol. Again, this patient does have a tendency for vasovagal episodes and has had vasovagal syncope in the past. The current episode may have been further provoked by use of a solvent in his basement and possibly recent use of a preworkout supplement. These supplements often contain relatively large amounts of caffeine and vasodilators such as arginine or other similar compounds that may further potentiate a tendency for syncope. Patient does not require long-term treatment with an anticonvulsant at this time, may discontinue the Keppra. Would consider obtaining outpatient cardiac monitoring. If patient were to have another syncopal episode going forward, with associated seizure activity would consider further neurological evaluation at that time including ambulatory EEG monitoring. I do not have any immediate restrictions for this patient. However, I did suggest that he take it easy for the next few days and avoid potentially high risk activities such as climbing ladders or swimming or bathing alone. 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 He was working in his basement at home using a solvent when he suddenly felt lightheaded and dizzy. He apparently collapsed to the ground striking the left side of his forehead and face. He arose on his own and went upstairs to her bedroom. He apparently had a second episode, his father heard a thud and witnessed irregular breathing. There was no witnessed convulsive activity at that time, however. Upon arousal he was confused for about 10 minutes. There was no incontinence or tongue bite. He does not recall any warning before the second episode but does recall emergency medical personnel arriving afterwards. During his assessment in the emergency department he had a witnessed tonic-clonic seizure lasting about 30 seconds with associated agonal breathing. He was treated with IV Keppra and admitted to the medical floor for further evaluation and management. The patient does relay a history of recurrent vasovagal episodes with a rare tendency for vasovagal syncope. He usually experiences adequate warning signs before these episodes. He recalls an episode where he assisted a physician removing surgical madison from his father's neck after surgery when he was a teenager. He has not had any significant vasovagal episodes in at least the past year. 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 He has never had convulsions or seizure-like activity in the context of his vasovagal episodes previously. He has never had seizures in the past. He does report some job-related stressors and he was planning to go on vacation. He was apparently planning to fly to [place] today. His vacation has been canceled. He is otherwise physically healthy and exercises regularly. He consumes a preworkout supplement but states he has not used it in a few days. He denies excessive alcohol consumption. He denies any recent illnesses or vaccinations. Currently, he is without specific or significant complaint. No headache, neck pain, dizziness, vertigo, vision change, weakness, sensory loss, incoordination, or difficulty with walking or balance. Allergies Allergy/AdvReac Type Severity Reaction Status Date / Time No Known Allergies Allergy Verified 03/30/22 16:13 Home Medications Medication Instructions Recorded Confirmed Type Pre Workout Powd 1 dose PO DIRECTED PRN .Before 03/30/22 03/30/22 History workouts biotin 1 mg capsule 0 mg PO DAILY 03/30/22 03/30/22 History ibuprofen 200 mg tablet (Advil) 400 mg PO Q6H PRN Pain 03/30/22 03/30/22 History Patient History Family History Other Family history non-contributory Social History Smoking Status: Never smoker Hx Alcohol Use: Yes Hx Substance Use: No Preferred Language: Sinhala Communication Ability: Effective Personal Consultant Required: No Beliefs That Will Affect Care: None Feels Safe at Home: Yes Safety Concerns: Feels Safe At This Time Review of Systems Review of Systems: REVIEW OF SYSTEMS: Constitutional: No fever, sweats or chills Eyes: No diplopia, no worsening or blurred vision ENT: normal hearing, no trouble swallowing Respiratory: No cough, sputum, dyspnea at rest or on exertion Cardiovascular: (+) dizziness, lightheadedness, No chest pain, tightness or palpitations Abdomen: No pain, nausea, vomiting, diarrhea or constipation Musculoskeletal: No joint pain, calf pain, swelling Neurologic: (+) seizure like activity, No weakness, numbness/tingling, or balance problems Psychiatric: No anxiety or depression Skin: No rash or itch Exam (Neuro) Constitutional: well developed and well nourished; no acute distress Eyes: normal visual green by confrontation, PERRL, normal accommodation and EOM intact bilaterally; no fundoscopic abnormality, no nystagmus and no papilledema Cardiovascular: Vessels: normal carotid upstroke; no carotid bruit Neurologic: Oriented to:: Person, Place and Time Memory: Short Term Intact and Remote Intact Attention: Span Intact and Concentration Intact Language: Naming Objects and Repeating Phrases Speech Fluency: negative Dysar thria Speech Aphasia: negative Aphasia Fund of Knowledge: Current Events, Past History and Vocabulary Cranial Nerves: Normal II (Visual green full to confrontation, visual acuity normal), III, IV, (Pupils equal round reactive to light and accommodation, eye movements normal), V (Facial sensation intact), VII (There is no facial droop or weakness), VIII (Hearing intact), IX, X (Palate elevates to midline), XI (Shoulder shrug intact) and XII (Tongue protrudes to midline) Motor Strength: Normal Lower Extremities and Normal Upper Extremities; negative Pronator Drift Motor Tone: Normal Lower Extremities and Normal Upper Extremities Muscle Bulk/Involuntary Movements: No Involuntary Movements; negative Muscle Atrophy Sensation: Light Touch Intact, Pain/Temperature Intact, Vibration Intact and Proprioception Intact Coordination: Normal; negative Limited Balance, Dysdiadochokinesia, Finger-Nose Abnormal or Heel-Ndiaye Abnormal Deep Tendon Reflexes: Rt Triceps: 2+, Lt Triceps: 2+, Rt Biceps: 2+, Lt Biceps: 2+, Rt Brachioradialis: 2+, Lt Brachioradialis: 2+, Rt Patellar: 2+, Lt Patellar: 2+, Rt Ankle: 2+ and Lt Ankle: 2+ Special Tests: negative Babinski Present Gait: Normal Station and Gait Results & Data ([facility]) Vital Signs (Past 12 Hours) Vital Signs Temp Pulse Pulse Resp BP BP Pulse Ox 03/31/22 08:00 36.7 C 74 19 100/59 L 100 03/31/22 07:17 65 03/31/22 03:30 36.7 C 59 L 107/59 L 98 03/30/22 22:15 77 03/30/22 23:05 36.8 C 75 17 129/67 97 O2 Del Method 03/31/22 08:00 Room Air 03/31/22 07:17 03/31/22 03:30 Room Air 03/30/22 22:15 03/30/22 23:05 Room Air Laboratory Results WBC 11.03, hemoglobin 13.9, hematocrit 43.2, MCV 86.4, platelet count 180, sodium 139, potassium 4.0, BUN 15, creatinine 1.16, glucose 92, magnesium 2.1, total CK2 68, TSH 3.293, prolactin 77.05, urine toxicology screen negative, Lyme screen negative, SARS-CoV-[address] of the head negative for acute process. MRI of the brain unremarkable. I independently reviewed the images. No restricted diffusion or blooming ar tifact. No parenchymal signal abnormality. No hydrocephalus or Chiari malformation. Thin sections of the temporal lobes unremarkable. No abnormal postcontrast enhancement. No evidence for stroke, demyelinating disease, encephalitis, neoplasm, or mesial temporal sclerosis. An electroencephalogram completed this morning was normal. No epileptiform abnormalities. An electrocardiogram completed yesterday revealed a normal sinus rhythm, 80 bpm. A repeat ECG completed today also revealed a normal sinus rhythm, 71 bpm. Coding Level of Care Code 47309 Initial Inpt Care Lvl 3 Diagnoses Vasovagal syncope R55 Seizure R56.9
--- NOTE | 2022-03-31 12:34 | XCELERA ---
[id number] \\[id number]
--- NOTE | 2022-03-31 13:31 | Discharge Summary ---
Date of Service March 31, 2022 Admission HPI Per Admitting Provider 26 YOM with no medical history and not on any prescription medications. Patient comes to the EMD today via EMS for syncope/seizure like activity. The patient was at home this morning down in his basement when he was removing sticker from his water bottle with goo gone. He started to feel dizzy and lightheaded, so he tried to make his way over to the finished section. While on his way over he remembers getting more dizzy. He then awoke on the floor and he endorsed confused. He had a laceration to the front of his head. He was able to take a picture of himself and text his mom, this was around 11:30. His mom talked to him on the phone and he sounded "off". He did not have an loss of bowel or bladder with this episode. His dad went over to see him. The patient then went into the bedroom to get dressed and his dad heard him say "Oh Shit" and heard him fall to the ground, his dad thinks he may have hit his head on the top on the dresser behind him. His dad called 911 ~ 1220 and rolled his son on his side. He endorses him making a barking/puffing sound with his breathing. The patient awakened but can not remember anything, this episode lasted ~ 10-15 minutes. The patient remembers waking up and seeing EMS around him. He was then transported to the EMD. In the EMD the patient had a witnessed event by EMD staff. This was him tightening his arms up to about 3/4 to his chest and again with barking/puffing breathing and reported as tonic clonic movement of his arms. This was resolving as the EMD physician got to bedside so presume 1 min or less. This was also not associated with any loss of bowel or bladder and also with out any biting of his tongue. He awakened and was not confused or postictal. He is spontaneously awake at this time and normally functioning. This was treated with Keppra 4.5 GM IV and unsure of time frame. In the EMD he had CT scan of his head, CXR, finger X-ray, Face CT and Cervical spine CT scan done. The patient does have an avulsion fracture of the base of the third digit distal phalanx and is unable to extend 3rd digit by self. It is being splinted, will consult orthopaedics. His head CT and Cervical CT scan are normal. His face CT scan is without fractures. Patient will be admitted to PCU, continue seizure precautions at all times. The patient has recently started taking a pre-workout powder that he has brought with him. He previously took this about a year ago, however stopped. He recently started this back within the last few days. He takes creatine supplementation about 1/2 scoop. He is physically active and has not had any events like this while working out or stressed. He averages 1-2 cups of coffee per day. Uses energy drinks 1 time per month if that. He denies excessive alcohol intake or smoking/vaping. He does however have a history of "passing" out when he sees blood on him, or blood draws, or things like capes around his neck. He denies any other drug use or supplementation. He denies any change in his diet or fasting. His glucose was normal on arrival and rest of his BMP is negative. Jose, consult Neurology, obtain EEG, MRI of brain with and without contrast. Valium will be available for breakthrough seizure. Toxicology screen, prolactin, lactate, CK, pending. He is without fevers, alteration in mentation and without focal neurological deficits. 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 This will need addressed. COVID test on admission is: NEGATIVE Principal Diagnosis Syncope Discharge Data Allergies Allergy/AdvReac Type Severity Reaction Status Date / Time No Known Allergies Allergy Verified 03/30/22 16:13 Consultations 03/30/22 15:58 ED Decision to Admit Stat 03/30/22 19:32 Consult Neurology Routine Consult Orthopedic Surgery Routine 03/31/22 10:39 Consult Cardiology Routine Ordered Studies 03/30/22 14:05 CT cervical spine wo con Stat CT face [CT facial bones wo con] Stat CT head/brain wo con Stat 03/30/22 16:55 MRI Brain [MR brain seizure wo/w con] Stat Hospital Course (1) Seizure-like activity: Likely triggered by vaso vagal syncope, which the patient has a history of MRI brain , EEG wnl No evidence of seizure per neurology, no need for anti seizure meds or driving restrictions 2 D ECHO did not show any structural heart abnormality Will follow up with 30 day event monitor per cardiology (2) Avulsion fracture: Left 3rd finger avulsion fracture- splint ordered to be applied by EMD - Patient unable to extend, but manually able to extend the finger without pain or resistance - Orthopaedics follow up outpatient (3) Head contusion: Left frontal laceration closed primarily by EMD - with surrounding ecchymosis - neuro exams q4 hour - any acute change - repeat head CT non contrast evaluate for DASH (4) Leukocytosis: Without fever, cough, CXR clear - Likely reactionary to all of the events today Total Time Total Time Spent Total Time Spent (In Minutes): 35 Discharge Plan Discharge Items Patient Disposition: Home - Self-Care Reason For Visit: syncope Discharge Diagnosis: syncope Activity: Resume your previous activity Non-emergency contact: Primary Care Provider Call non-emergency contact if: you have any medication questions Follow-up/Referrals: PCP,NO [Primary Care Provider] - Diet: Regular Addtl Attending Provider Instructions: Please follow up with cardiology regarding the 30 day event monitor Addtl Habilitation Specialist Provider Instructions: Orthopedic instructions: Leave the splint in place at all times on the left hand. Follow-up with orthopedics next week. You will likely be placed in a stack splint. Please call the office for an appointment. [phone] Pending Studies at Discharge: No Stand-Alone Forms: My [employer], Smoking Cessation Medications and DC Order Prescriptions: Continued ibuprofen [Advil] 200 mg Tablet 400 mg PO Q6H PRN (Reason: Pain) biotin 1 mg Capsule 0 mg PO DAILY Pre Workout Powd 1 dose PO DIRECTED PRN (Reason: .Before workouts) Discharge Orders: Discharge Order (Routine); Ordered 03/31/22 Ordered By: Juan Carlos Neely Admission Data Admit Date/Time: 03/30/22 17:02 Attending Provider: Juan Carlos Neely Admit Provider: Miky Arthur Primary Care Provider: PCP,NO Other Providers: Miky Arthur ; Jesus Baldwin ; Serafin Hackett ; Fredrick Grubbs Coding Level of Care Code D/C DAY MANAGEMENT >30 MINS Diagnoses Seizure-like activity R56.9 Avulsion fracture T14.8XXA Head contusion S00.93XA Leukocytosis D72.829 Time Spent (min) 35
--- NOTE | 2022-03-31 17:14 | Cardiology Consultation ---
Date of Consultation March 31, 2022 Assessment & Plan (1) Loss of consciousness: Plan 1. Syncope: He suffered a loss of consciousness early this morning that did result in a minor injury. The mechanism of this event is unclear. While he has had episodes in the past consistent with neurocardiogenic syncope, he felt that this 1 was slightly different. His syncope occurred quite rapidly. There is not much of an associated prodrome. Afterwards he seemed to feel well with the exception of a minor injury. The 2 subsequent events clearly do not appear to be related to neurocardiogenic syncope. How the 2nd two events are related to his initial injury is unclear. His last event occurred in the emergency room at that time he was on telemetry. His heart rhythm was normal during this brief episode of tonic-clonic activity. His EKG is normal. No evidence of structural heart disease. No right ventricular dilation. No LVH or hypertrophic cardiomyopathy. This EKG is also normal without evidence of pre-excitation, Brugada pattern, hypertrophy or QT abnormality. I think this puts him in a category patient to have a good prognosis from a cardiovascular standpoint. We can perform a period of outpatient telemetry monitoring for completeness. However, I think the likel ihood of detecting an arrhythmia is low. History of Present Illness Reason for Consultation: Syncope Requesting Physician: Chin Attending Physician: Juan Carlos Neely MD History of Present Illness The patient is a 18-year-old gentleman without a known history of cardiac disease who suffered several episodes of syncope today. 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 For some time under certain circumstances he will have symptoms of mild dizziness and presyncope that are easily aborted by sitting or lying down. 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 He recognized the symptoms and attempted to sit or lie down but passed out relatively quickly. He states that it only took 1 or 2 seconds and to pass out. He did suffer an injury to the side of his face. Afterwards he was able to ambulate and move up stairs in his home. His father was there that morning and noticed the injury. He also noti alberta the patient lose consciousness again while getting dressed. The patient does not have much recollection of that event. He was taken by ambulance to the emergency room in in the emergency room he had what was described as a tonic- clonic seizure. This lasted just a few seconds. In general the patient is an active individual both at work and through exercise. He does not have symptoms associated with activity. He denies exertional chest pain or breathing difficulty. He has not had syncope or presyncope with activity. He is generally not aware of palpitations. Does have some devices at home which measure his heart rate, but he does not wear these routinely. He cannot recall any abnormal heart rates measured through these devices. Allergies Allergy/AdvReac Type Severity Reaction Status Date / Time No Known Allergies Allergy Verified 03/30/22 16:13 Home Medications Medication Instructions Recorded Confirmed Type Pre Workout Powd 1 dose PO DIRECTED PRN .Before 03/30/22 03/30/22 History workouts biotin 1 mg capsule 0 mg PO DAILY 03/30/22 03/30/22 History ibuprofen 200 mg tablet (Advil) 400 mg PO Q6H PRN Pain 03/30/22 03/30/22 History Patient History Family History Other Family history non-contributory Social History Smoking Status: Never smoker Hx Alcohol Use: Yes Hx Substance Use: No Preferred Language: Kyrgyz Communication Ability: Effective Perforator Loader Required: No Beliefs That Will Affect Care: None Feels Safe at Home: Yes Review of Systems Review of Systems: Per HPI. He did not describe any gastrointestinal symptoms today or yesterday. No nausea or vomiting. Did not recall any profound fatigue after these events. He seems to have little recollection of the 2nd and 3rd event occurred. Physical Exam Physical Exam: The patient is alert and oriented. Mood and affect appeared normal. He answered all questions appropriately. HEENT: Pupils are equal and reactive to light and accommodation. Extraocular movements are intact. The sclerae are anicteric. Neuro: Cranial nerves intact Lungs: Clear to auscultation bilaterally. He has good air movement without use of accessory muscles. No rales wheezes or rhonchi. Cardiac: Heart demonstrates a regular rate and rhythm. Normal S1 and S2. No murmurs on examination. Pulses: The patient has palpable radial pulses bilaterally that are equal in intensity Extremities: There was no evidence of hypoperfusion. There is no cyanosis or clubbing. There is no edema. Skin: I did not appreciate any rashes on examination today. Results & Data ([facility]) Vital Signs (Past 12 Hours) Vital Signs Temp Pulse Pulse Resp BP BP Pulse Ox 03/31/22 13:35 36.7 C 68 19 106/68 100/59 L 98 03/31/22 12:29 36.7 C 68 19 106/68 98 03/31/22 08:00 36.7 C 74 19 100/59 L 100 03/31/22 07:17 65 O2 Del Method 03/31/22 13:35 03/31/22 12:29 Room Air 03/31/22 08:00 Room Air 03/31/22 07:17 Laboratory Results Abnormal Lab Results 03/30/22 03/30/22 03/30/22 14:40 14:40 14:40 WBC RBC Hgb Hct MCV MCH MCHC RDW Std Deviation RDW Coeff of [place] Plt Count MPV Immature Gran % (Auto) Neut % (Auto) Lymph % (Auto) [place] % (Auto) Eos % (Auto) Baso % (Auto) Neut # (Auto) Lymph # (Auto) [place] # (Auto) Eos # (Auto) Baso # (Auto) Immature Gran # (Auto) Sodium Potassium Chloride Carbon Dioxide Anion Gap BUN Creatinine Est Cr Clr Drug Dosing Est GFR ( Amer) Est GFR (Non-Af Amer) BUN/Creatinine Ratio Glucose POC Glucose Lactate Calcium Magnesium Total Creatine Kinase 268 H TSH 3.293 Prolactin 77.05 Random Cortisol Urine Opiates Screen Ur Methadone, Qual Urine Barbiturates Ur Phencyclidine (PCP) U Amphetamin/Meth Scrn MDMA (Ecstasy) Screen U Benzodiazepines Scrn Ur Cocaine Metabolite U Marijuana (THC) Screen Lyme Disease IgG Ab Lyme Disease IgM Ab 03/30/22 03/30/22 03/30/22 14:40 14:40 15:40 WBC RBC Hgb Hct MCV MCH MCHC RDW Std Deviation RDW Coeff of [place] Plt Count MPV Immature Gran % (Auto) Neut % (Auto) Lymph % (Auto) [place] % (Auto) Eos % (Auto) Baso % (Auto) Neut # (Auto) Lymph # (Auto) [place] # (Auto) Eos # (Auto) Baso # (Auto) Immature Gran # (Auto) Sodium Potassium Chloride Carbon Dioxide Anion Gap BUN Creatinine Est Cr Clr Drug Dosing Est GFR ( Amer) Est GFR (Non-Af Amer) BUN/Creatinine Ratio Glucose POC Glucose Lactate Calcium Magnesium Total Creatine Kinase TSH Prolactin Random Cortisol 28.42 Urine Opiates Screen Neg Ur Methadone, Qual Neg Urine Barbiturates Neg Ur Phencyclidine (PCP) Neg U Amphetamin/Meth Scrn Neg MDMA (Ecstasy) Screen Neg U Benzodiazepines Scrn Neg Ur Cocaine Metabolite Neg U Marijuana (THC) Screen Neg Lyme Disease IgG Ab Negative Lyme Disease IgM Ab Negative 03/30/22 03/30/22 03/31/22 20:08 20:36 06:57 WBC 11.03 H RBC 5.00 Hgb 13.9 L Hct 43.2 MCV 86.4 MCH 27.8 MCHC 32.2 RDW Std Deviation 39.0 RDW Coeff of [place] 12.5 Plt Count 180 MPV 10.7 Immature Gran % (Auto) 0.5 Neut % (Auto) 76.4 Lymph % (Auto) 12.3 [place] % (Auto) 10.0 Eos % (Auto) 0.4 Baso % (Auto) 0.4 Neut # (Auto) 8.44 H Lymph # (Auto) 1.36 [place] # (Auto) 1.10 H Eos # (Auto) 0.04 Baso # (Auto) 0.04 Immature Gran # (Auto) 0.05 H Sodium Potassium Chloride Carbon Dioxide Anion Gap BUN Creatinine Est Cr Clr Drug Dosing Est GFR ( Amer) Est GFR (Non-Af Amer) BUN/Creatinine Ratio Glucose POC Glucose 97 Lactate 0.8 Calcium Magnesium Total Creatine Kinase TSH Prolactin Random Cortisol Urine Opiates Screen Ur Methadone, Qual Urine Barbiturates Ur Phencyclidine (PCP) U Amphetamin/Meth Scrn MDMA (Ecstasy) Screen U Benzodiazepines Scrn Ur Cocaine Metabolite U Marijuana (THC) Screen Lyme Disease IgG Ab Lyme Disease IgM Ab 03/31/22 03/31/22 03/31/22 06:57 07:16 11:09 WBC RBC Hgb Hct MCV MCH MCHC RDW Std Deviation RDW Coeff of [place] Plt Count MPV Immature Gran % (Auto) Neut % (Auto) Lymph % (Auto) [place] % (Auto) Eos % (Auto) Baso % (Auto) Neut # (Auto) Lymph # (Auto) [place] # (Auto) Eos # (Auto) Baso # (Auto) Immature Gran # (Auto) Sodium 139 Potassium 4.0 Chloride 108 H Carbon Dioxide 26 Anion Gap 5 BUN 15 Creatinine 1.16 Est Cr Clr Drug Dosing 101.0 Est GFR ( Amer) 98.8 Est GFR (Non-Af Amer) 85.2 BUN/Creatinine Ratio 12.9 Glucose 92 POC Glucose 89 100 H Lactate Calcium 8.7 Magnesium 2.1 Total Creatine Kinase TSH Prolactin Random Cortisol Urine Opiates Screen Ur Methadone, Qual Urine Barbiturates Ur Phencyclidine (PCP) U Amphetamin/Meth Scrn MDMA (Ecstasy) Screen U Benzodiazepines Scrn Ur Cocaine Metabolite U Marijuana (THC) Screen Lyme Disease IgG Ab Lyme Disease IgM Ab Diagnostic Findings EEG was performed which did not reveal any evidence of seizure activity. Chest x-ray obtained the time admission did not reveal any acute cardiopulmonary disease Echocardiogram performed today revealed normal LV systolic function. No significant valvular heart disease. No hypertrophy. No chamber dilation. ECG Additional Comments: EKG obtained the time admission not reveal any abnormalities. Normal sinus rhythm. No conduction disease. Normal QRS. No Brugada pattern. No hypertroph y. QT interval was normal. PG Care Time/CCT Total # of Minutes Spent Total Time Spent with Patient: Total time spent is greater than 50% in coordination of care (as documented) at patient's floor/unit and/or counseling patient: Coding Level of Care Code 73469 Office/OBS Consult Lvl 4 Diagnoses Loss of consciousness R40.20
--- NOTE | 2022-03-31 18:04 | Electrocardiogram Report ---
Test Reason : Blood Pressure : / mmHG Vent. Rate : 071 BPM Atrial Rate : 071 BPM P-R Int : 180 ms QRS Dur : 102 ms QT Int : 388 ms P-R-T Axes : 047 065 028 degrees QTc Int : 421 ms Normal sinus rhythm Normal ECG When compared with ECG of 30-MAR-2022 14:46, No significant change was found Confirmed by Fredrick Grubbs ([id number]) on 03/31/2022 6:04:22 PM Referred By: REFERRED SELF Confirmed By:Harman Grubbs
== END 2022-03-31 13:56 | disposition home or self-care (01) | DRG 101 ==
LOC: ED 13:21 → 2S 17:02 → SUATTDRO 17:02 → 2S 20:31